=== PATIENT | female | born 2005 | race Caucasian/White ===

== ENCOUNTER 2025-03-31 13:11 | Outpatient (AMB) | payer OTHER, SELFPAY ==
--- NOTE | 2025-03-31 13:47 | A.OFFPC_ITS ---
Vital Signs 03/31/25 13:49 Height 5 ft 1 in Weight 138 lb BMI 26.1 BP 100/54 L Blood Pressure Location Rt brachial Pulse 69 Pulse Source Pulse Oximeter Temp 97.5 F Pulse Oximetry (%) 99 Intake Visit Reasons: [employer]PER / Headaches Intake Note: having some anxiety with living at school. Allergies No Known Allergies Allergy (Verified 03/31/25 14:11) Medication List - Last Reconciled 03/31/25 by Kristina Paez PA-C No Known Home Meds Dental Screening Dental Screen Date: 03/31/25 Did you have a dental visit in the last 12 months?: Yes Did you have a dental problem in the last 6 months where you did not have access to dental care?: Yes Was dental information given to patient?: Patient has dentist HPI HPI Comments 2 History of Present Illness Details History of Present Illness The patient is a 19 year old female presenting as a new patient for a physical exam and to obtain a letter regarding her anxiety. She has been experiencing increased anxiety while living at school and is seeking a medical release from her on-campus housing requirement. The patient's school, [employer], requires a formal document to appeal their denial of her request to move out. Her medical history is notable for asthma and eczema, and she has a long-standi ng history of migraine headaches. She does not take any regular medications for these conditions. Her only reported surgery was the removal of two wisdom teeth on the left side a few months ago. She denies any family history of cancer. Social History - Housing: The patient currently lives o campus at [employer] but wishes to move home due to anxiety, which she reports is exacerbated by the shared dormitory environment. 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 - Sexual History: The patient has been s exually active in the past but is not currently. [facility] Medical History (Updated 03/31/25 @ 15:51 by Kristina Paez PA-C) Preventative health care Anxiety Annual physical exam Migraine headache Cervical cancer screening Surgical History History of wisdom tooth extraction Family History Mother No problems noted. Social History Alcohol intake: current Alcohol intake frequency: does not drink Patient Tobacco Use Status: Never used Tobacco Questionnaire PHQ-9 Over the last 2 weeks, how often have you been bothered by any of the following problems? 1. Little interest or pleasure in doing things: not at all 2. Feeling down, depressed, or hopeless: not at all 3. Trouble falling or staying asleep, or sleeping too much: not at all 4. Feeling tired or having little energy: not at all 5. Poor appetite or overeating: not at all 6. Feeling bad about yourself - or that you are a failure or have let yourself or your family down: not at all 7. Trouble concentrating on things, such as reading the newspaper or watching television: not at all 8. Moving or speaking so slowly that other people could have noticed. Or the opposite - being so fidgety or restless that you have been moving around a lot more than usual: not at all 9. Thoughts that you would be better off or of hurting yourself in some way: not at all Total score: 0 Depression Screening Interpretation: Negative Depression Screening Done: Yes 05200 - PHQ-9 Billing: Yes Source: Developed by Drs. Get Pearson, Hue Jefferson, Flaco Hart and colleagues, with an educational brittany from [employer]. Thrive Questionnaire Date Thrive assessed: 03/31/25 I am a: Patient What is your living situation today?: I have a steady place to live Within the past 12 months, did the food you bought not last and you didn't have the money to get more?: Never true Within the past 12 months, did you worry whether your food would run out before you got money to buy more?: Never true Do you have trouble paying for medicines?: No Do you have trouble getting transportation to medical appointments?: No Do you have trouble paying your heating and electricity bill?: No Do you have trouble taking care of your child, family member or friend?: No Do you have trouble with day-to-day activities such as bathing, preparing meals, shopping, managing finances, etc.?: No Are you currently unemployed and looking for a job?: No Are you interested in more education?: No THRIVE Score: 0 AUDIT C Alcohol Use Questionnaire (AUDIT-C) 1. How often do you have a drink containing alcohol?: Never 3. How often do you have six or more drinks on one occasion?: Never Total Score: 0 Score Reviewed/Action Taken: No LUCIA-7 AMB Questionnaire LUCIA-7 Date LUCIA - 7 assessed: 03/31/25 Feeling nervous, anxious, or on edge: 2 = More than half the days Not being able to stop or control worryin = Not at all Worrying too much about different things: 0 = Not at all Trouble relaxin = Not at all Being so restless that it is hard to sit still: 0 = Not at all Becoming easily annoyed or irritable: 0 = Not at all Feeling afraid as if something awful might happen: 0 = Not at all Total LUCIA-7 score (0-4 normal; 5-9 mild; 10-14 moderate; 15-21 severe): 2 Source: Developed by Drs. Get Pearson, Hue Jefferson, Flaco Hart and colleagues, with an educational brittany from [employer]. LUCIA-7 Assessment Billing LUCIA-7 Assessment Tool: LUCIA-7 Assessment 88662 Review of Systems Narrative Review of Systems - HEENT: Reports a history of headaches. - Psychiatric: Reports feeling anxious living at school. Denies anhedonia, depressed mood, sleep disturbances, fatigue, appetite changes, feelings of worthlessness, or suicidal ideation. - Constitutional: Denies fatigue or unintentional weight loss. - Gastrointestinal: Denies black or bloody stools. Const All systems reviewed & are unremarkable except as noted in HPI and below Physical exam (Primary Care) Vital Signs: Last Vital Signs Temp 97.5 F 03/31/25 13:49 Pulse 69 03/31/25 13:49 BP 100/54 L 03/31/25 13:49 Pulse Ox 99 03/31/25 13:49 Care Plan Goal for BP management: <140/90 at Goal BMI result Body Mass Index 26.1 BMI Assessment/Plan discussion: High BMI High, discussed plan: lifestyle, weight reduction, dietary, physical activity, alcohol moderation and other Tobacco/Smoking Status: Tobacco use Status Patient Tobacco Use Status Never used Tobacco 03/31/25 13:59 PHQ-9: PHQ-9 Score PHQ-9: Total score 0 03/31/25 14:58 Depression Screening Interpretation: Negative Thrive Assessment: Date of Thrive Assessment Date Thrive assessed 03/31/25 03/31/25 14:00 Narrative Physical Exam Appearance: Alert. Oriented X3. No acute distress. Head: Normal external exam. Normocephalic. Atraumatic. Eyes: Pupils are equal, round, and reactive to light. Extraocular movements intact. Conjunctiva and sclera normal. Eyelids normal. Ears: External auditory canal normal. Tympanic membranes normal. Throat: Pharynx normal. Uvula midline. Moist mucous membranes. Neck: Normal inspection. Neck supple. Full range of motion. No adenopathy. Thyroid Normal. No meningeal signs. No neck mass noted. Cardiovascular: Normal heart rate and rhythm. Heart sound normal. No murmurs noted. Pulses normal throughout. Respiratory: No respiratory distress. Painless inspiration. Breath sounds normal. No wheezes/rales/rhonchi noted. Chest nontender. No accessory muscle usage noted or decreased air movement noted. Abdomen: Soft and nontender. Bowel sounds normal in all 4 quadrants. No distention noted. No organomegaly noted. No visible injury noted. Back: No costovertebral angle tenderness. Full range of motion noted. Skin: Skin warm and dry. Normal skin color. Normal skin turgor. No rashes/lesions/lacerations noted. Extremities: No lower extremity edema. Extremities exhibit normal range of motion. Extremities nontender. Neuro: Oriented X 3. No motor deficit. No sensory deficit. Reflexes normal. Office Procedures Flu Questionnaire Does the patient have a severe egg allergy?: No Does the patient have severe life threatening allergies?: No Does the patient have a fever or illness today?: No Has the patient ever had Guillain-Langley Syndrome?: No Has the patient ever had any past reaction to a flu shot?: No Immunizations Fluarix [id number] (PF) 45 mcg (15 mcg x 3)/0.5 mL IM syringe Performing Provider: Kristina Paez PA-C [facility] Administered by: Carley Fields on 03/31/25 14:01 Dose Route Admin Location Dispensed Lot Number Expiration Date [facility] Copyright Expert 0.5 mL IM Left Deltoid 0.5 mL [id number] 10/14/25 75230-686-20 [employer] VIS Given Date VIS Provided VIS Publication Date 03/31/25 Single Vaccine 24 Eligibility Eligibility Date Funding Source Not [facility] Eligible 03/31/25 Private Coding Level of Care Code New Pt Prev Care 18-39yr(74283 Add On Preventative Visit Only Diagnoses Annual physical exam Z00.00 Anxiety F41.9 Migraine headache G43.909 Preventative health care Z00.00 Cervical cancer screening Z12.4 Additional Codes LUCIA-7 Assessment Billing - LUCIA-7 Assessment Tool: LUCIA-7 Assessment 70165 ([id number]) PHQ-9 - 48110 - PHQ-9 Billing: Yes ([id number]) Time Spent (min) 60 Assessment & Plan Assessment & Plan (1) Annual physical exam: Code(s): Z00.00 - Encounter for general adult medical examination without abnormal findings Category: Medical (2) Anxiety: Code(s): F41.9 - Anxiety disorder, unspecified Category: Medical Plan: The patient reports anxiety exacerbated by living in a shared dormitory environment, negatively impacting her well-being and academic performance. A letter was provided to recommend that she be permitted to move out of the campus dormitory as a medical accommodation. The patient declined a referral to a therapist or psychiatrist, stating she feels she would be better if she could live at home. (3) Migraine headache: Code(s): G43.909 - Migraine, unspecified, not intractable, without status migrainosus Category: Medical Plan: The patient has a history of migraine headaches, which she manages with Motrin. She states this is sufficient and does not feel the need for a referral to a neurologist. (4) Preventative health care: Code(s): Z00.00 - Encounter for general adult medical examination without abnormal findings Category: Medical Plan: The patient's visit was established as her annual physical. Baseline blood work was ordered, including a CBC, CMP, magnesium, lipid panel, and HbA1c, with instructions to fast for 10-12 hours prior. Due to a history of sexual activity, a referral will be placed for a Pap smear for cervical cancer screening. She was instructed on how to perform a breast self-exam. A follow-up is scheduled for a yearly appointment, though she should return sooner if her blood work is abnormal. (5) Cervical cancer screening: Code(s): Z12.4 - Encounter for screening for malignant neoplasm of cervix Category: Medical Plan: l refer to director of planning for cervical cancer screening. Plan Plan Patient was informed and verbally consented to the use of an ambient scribe for clinic note documentation during this visit. 1. Anxiety The patient reports anxiety exacerbated by living in a shared dormitory environment, negatively impacting her well-being and academic performance. A letter was provided to recommend that she be permitted to move out of the campus dormitory as a medical accommodation. The patient declined a referral to a therapist or psychiatrist, stating she feels she would be better if she could live at home. 2. Migraine The patient has a history of migraine headaches, which she manages with Motrin. She states this is sufficient and does not feel the need for a referral to a neurologist. 3. Preventative Care The patient's visit was established as her annual physical. Baseline blood work was ordered, including a CBC, CMP, magnesium, lipid panel, and HbA1c, with instructions to fast for 10-12 hours prior. Due to a history of sexual activity, a referral will be placed for a Pap smear for cervical cancer screening. She was instructed on how to perform a breast self-exam. A follow-up is scheduled for a yearly appointment, though she should return sooner if her blood work is abnormal. Discussion Notes I discussed with the patient that this visit would serve as her annual physical. We discussed her anxiety, which is exacerbated by her living situation at college, and I agreed to provide a letter to her school recommending she be allowed to live off-campus as a medical accommodation. I educated her on the need for cervical cancer screening due to her history of sexual activity and will provide a referral. I also instructed her on performing monthly breast self-exams and advised that routine mammograms typically begin at age 40 and colonoscopies at 45, given her lack of family history. I ordered routine fasting lab work, including a CBC, CMP, lipids, and A1c, and instructed her to have it completed within the next eight weeks. I recommended she sign up for the patient portal for easier communication. We will follow up in one year for her next physical unless any issues arise sooner. Orders: Orders C Reactive Protein Today Z00.00 - Encounter for general adult medical examination without abnormal findings Comprehensive [place]. Panel Fast Today Z00.00 - Encounter for general adult medical examination without abnormal findings Complete Blood Count Auto Diff Today Z00.00 - Encounter for general adult medical examination without abnormal findings Lipid Panel Today Z00.00 - Encounter for general adult medical examination without abnormal findings TSH reflex Free T4 Today Z00.00 - Encounter for general adult medical examination without abnormal findings UA CC w/rflx Micro + Cult Today Z00.00 - Encounter for general adult medical examination without abnormal findings Hemoglobin A1c Today Z00.00 - Encounter for general adult medical examination without abnormal findings Erythrocyte Sedimentation Rate Today Z00.00 - Encounter for general adult medical examination without abnormal findings Magnesium Today Z00.00 - Encounter for general adult medical examination without abnormal findings Vitamin B12 and Folate Today Z00.00 - Encounter for general adult medical examination without abnormal findings Vitamin D 25-OH Total Today Z00.00 - Encounter for general adult medical examination without abnormal findings Influenza [id number] Immunization Today Z23 - Encounter for immunization Referrals [employer] Referral Z12.4 - Encounter for screening for malignant neoplasm of cervix Patient Instructions: Patient Instructions - Go to the lab to get your blood work done within the next 8 weeks. Do not eat or drink anything except water or black coffee for 10-12 hours before the blood draw. - We will refer you to a women's health specialist for a Pap smear (cervical cancer screening). - Perform a self-exam of your breasts monthly. While in the shower, place an arm behind your head and use your other hand to feel your breast in a circular motion, pushing on the nipple to check for any discharge. - For your headaches, you can continue to take Motrin as needed. - Sign up for the patient portal to make it easier to communicate with our office. - Schedule a follow-up appointment in one year for your annual physical exam. - Please call us if you have any questions or if your blood work comes back abnormal.
[2025-03-31 13:49] VITALS: BP 100/54; PULSE 69; TEMP 36.4; O2SAT 99; BMI 26.1
--- OUTSIDE RECORDS SUMMARY | 2025-03-31 19:11 | XMS_ITS | Encounter Summary ---
Author Organization [facility] Address [address] [place] [address] Phone Care Team Providers Care Business Office Representative Name Role Phone Maikel Koenig MD Primary Care Provider [phone] Encounter Details Date Type Department Care Team ([facility] Contact Info) Description 09/28/2010 Conversion Encounter [facility] [place] [address] [place] [id number] Social History Tobacco Use Types Packs/Day Years Used Date Smoking Tobacco: Never Assessed Comments Unknown Sex and Gender Information Value Date Recorded Sex Assigned at Female 02/11/2020 9:57 AM EDT Legal Sex Female 6:42 PM EDT Gender Identity Female 02/11/2020 9:57 AM EDT Sexual Orientation Straight 02/11/2020 9: 57 AM EDT documented as of this encounter Plan of Treatment Not on file documented as of this encounter Visit Diagnoses Not on filedocumented in this encounter Care Teams Business Office Representative Relationship Specialty Start Date End Date Maikel Koenig MD [address] [place] [id number] PCP - General 08/23/17 documented as of this encounter
--- OUTSIDE RECORDS SUMMARY | 2025-03-31 19:11 | XMS_ITS | Clinical Summary ---
Author Organization [facility] Address [address] [place] [address] Phone Care Team Providers Care Transportation Engineering Technician Name Role Phone Maikel Koenig MD Primary Care Provider [phone] Allergies No known active allergies Medications No known medications Active Problems Problem Noted Date Diagnosed Date Chest wall pain 06/05/2024 Assessment & Plan (06/05/2024 3:23 PM EST): Well appearing w non-focal exam Patient Instructions Chest wall pain, uncertain trigger Extra strength Tylenol 500 mg per tablet--2 tabs, 3x daily x 3 days then stop. Could use reg tylenol (325 mg per tablet) if that's all that is available. If worsening, needs a recheck and probably a CXR. Counseling for transition fr pediatric to adult care provider 11/16/2023 Resolved Problems Problem Noted Date Diagnosed Date Resolved Date Acne vulgaris 03/03/2021 11/16/2023 Overview (03/03/2021): June 2020: tretinoin 0.025% cream and clindamycin 1% Nov 2020: to continue Feb 2021: worsening -- increase to tretinoin 0.1%, clindamycin 1% BID and BP 10% face wash BID -- recheck 3 months. Assessment & Plan (07/22/2021 10:32 AM EDT): Continue Pro-Activ as directed x 6 weeks and if not improving come back to office and can consider oral medications. Coppola splints 02/11/2020 11/16/2023 Overview (02/11/2020): Suspected bilateral Assessment & Plan (07/22/2021 10:36 AM EDT): Handout, discussed. Ice, Aleve, inserts in shoes. Take 1 Aleve (220 mg Naproxen) with food about 1 hour prior to playing soccer. Assessment & Plan (02/11/2020 11:01 AM EDT): I suspect Yamilet has coppola splints. I recommend: Rest for a few weeks to allow inflammation to calm down May use Ibuprofen , Aleve or Tylenol as needed for pain relief . May also ice after activity for 15 minutes I recommend trial of shoe inserts to provide arch support Stretching exercises Call if pain worsens, is located on front of coppola, night wakening, painful at rest or develops fevers Also call if not improving in 2-3 weeks. I would refer to orthopedics or physical therapy Cellulitis of toe of left foot 12/25/2018 02/14/2019 Assessment & Plan (12/25/2018 8:19 PM EDT): Cellulitis- Blister incised w small needle and drained w scant pus- cultured. Dressing w topical abx applied. Took extra dose of Keflex in office ( so 2 grams total today). Will continue 500mg TID for 5 more days. Soaks and topical abx TID F/u if looking sicker or more red, pain etc. 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 Has tried multiple stimulants previously with same issues. Yamilet feels she is doing fine w/o medication. Has found other ways to cope. No services in school I discussed that if inattention returns as a concern, we could consider trying a stimulant like Vyvanse from the amphetamine family of stimulants Assessment & Plan (02/14/2019 3:33 PM EDT): ADD--start Focalin XR medication as discussed Recheck in 2 months, CALL Dr. Koenig in 10 days with an update. School services such as 504 plan as needed Discussed medication effects and side effects Call for refill when down to last 5-7 tablets/capsules Healthy diet, regular exercise and at least 8 hours sleep nightly encouraged Assessment & Plan (08/13/2018 2:29 PM EDT): Change to Methylphenidate ER 18 mg daily (aka Concerta) Recheck in 5 weeks or so. Call if concerns. School services such as 504 plan as needed Discussed medication effects and side effects Call for refill when down to last 5-7 tablets/capsules Healthy diet, regular exercise and at least 8 hours sleep nightly encouraged Immunizations Immunization Administration Dates Next Due DTaP / Hep B / IPV 03/30/2006,02/08/2006, 006 DTaP 5 09/28/2010, 7,01/05/2007,03/30,02/08/2006,2005 HPV Vaccine 9 Valent 10/22/2018,02/05/2018 Hep A, ped/adol 04/06/2007, 7,09/29/2006,09/29 Hep B, ped/adol 03/30/2006, 6,2005,09/11,2005 Hib (HbOC) 01/05/2007 Hib (PRP-T) 01/05/2007, 6,03/30/2006,02/08,02/08/2006,2005,2005 IPV 12/29/2009, 6,02/08/2006,12/08 Influenza, injectable, quadr ivalent, preservative free 03/14/2022,07/22/2021,02/11/2020,02/14,02/05/2018,02/11/2016,03/17/2015 Influenza, injectable, trivalent 04/06/2007,01/16 Influenza, injectable, triva lent, preservative free 03/16/2010,01/08/2009,01/08/2008,04/06,02/12/2007 Influenza, intranasal, trivalent 02/22/2012 MMR 09/18/2010,09/29/2006 MMRV 09/29/2006 Meningococcal B Trumenba 11/15/2023,11/01/2022 Meningococcal Conj (Menactra) MCV4P 12/15/2016 Meningococcal Conj (Menveo) MCV4O 03/14/2022 Pneumococcal Conjugate 01/05/2007,2006,03/30/2006,03/30,02/08/2006,02/08/2006,2005 ,2005 Pneumococcal Conjugate 13-Valent 12/29/2009 Tdap 12/15/2016 Unknown Vaccine 09/29/2006 Varicella 12/29/2009,09/29/2006 Family History Relation Name Status Comments Brother Alive Brother: Alive and well Father Alive Father: Alive a nd well Mother Alive Mother: Alive a nd well Social History Tobacco Use Types Packs/Day Years Used Date Smoking Tobacco: Never Smokeless Tobacco: Never Hunger/Food Answer Date Recorded In the last 12 months, did y ou or your family ever eat less than you felt you should because there wasn't enough money for food? No 11/15/2023 Stable Housing Answer Date Recorded Are you worried that in the next 2 months you may not have stable housing? No 11/15/2023 Transportation Concerns Answer Date Rec orded In the last 12 months, have you or your family ever had to go without healthcare because you didn't have a way to get there? No 11/15/2023 Hazards in Home Answer Date Recorded Think about the place you li ve. Do you have problems with any of the following? Pests (mice or roaches), mold, no/not working smoke detectors, water leaks, no window guards. No 2023 Financing Utilities Answer Date Recorde d In the last 12 months, has t he electric, gas, oil, or water company threatened to shut off your services in your home? No 11/15/2023 Safety at Home Answer Date Recorded Are you or your family worried about feeling saf e in your home? No 11/15/2023 Outside Support Answer Date Recorded Do you feel that you need mo re support from other people or programs to help you care for yourself or your family? No 11/15/2023 Understanding Health Concerns Answer Da te Recorded Do you need help understandi ng your or your child's healthcare needs (diagnosis, medications, plan, etc.)? No 11/15/2023 Financing Health Concerns Answer Date R ecorded In the last 12 months, was t here a time when your child needed to see a doctor or get medications or supplies but could not because of cost? No 11/15/2023 Missing School or Work Answer Date Payam rded Did you or your child miss s chool or work because of a health problem that could have been avoided? No 11/15/2023 Child Education Answer Date Recorded Do you have concerns about y our/your child's learning or behavior in school, preschool, or daycare? No 11/15/2023 Comments No Sex and Gender Information Value Date Recorded Sex Assigned at Female 02/11/2020 9:57 AM EDT Legal Sex Female 6:42 PM EDT Gender Identity Female 02/11/2020 9:57 AM EDT Sexual Orientation Straight 02/11/2020 9: 57 AM EDT Last Filed Vital Signs Vital Sign Reading Time Taken Comments Blood Pressure 116/64 06/05/2024 2:06 PM EST Pulse 80 06/05/2024 2:06 PM EST Temperature 37.4 C (99.3 F) 06/05/2024 2:06 PM EST Respiratory Rate 20 06/05/2024 2:06 PM EST Oxygen Saturation 98% 06/05/2024 2:06 PM EST Inhaled Oxygen Concentration - - Weight 59.1 kg (130 lb 6 oz) 06/05/2024 2:06 PM EST Height 153.3 cm (5' 0.35 ) 11/15/2023 10:48 AM E DT Body Mass Index 25.16 11/15/2023 10:48 AM EDT Body Mass Index Percentile 81.41% 06/05/2024 2:0 6 PM EST Growth Chart: CDC (Girls, 2- 20 Years) Plan of Treatment Health Maintenance Due Date Last Done Comments Chlamydia and Gonorrhea Screening 04/17/2024 024, 11/01/2022 Influenza Vaccines (#1) 2024 03/14/20 22, 07/22/2021, 02/11/2020, Additional history exists COVID-19 Vaccine (1 - 2024-2 6 season) 2024 DTaP,Tdap,and Td Vaccines (7 - Td or Tdap) 12/15/2026 12/15/2016, 09/28/2010, 01/05/2007, Additional history exists Hepatitis B Vaccines Completed 03/30/2006, 03/30/2006, 02/08/2006, Additional history exists HIB Vaccines Completed 01/05/2007, 12/17, 03/30/2006, Additional history exists Hepatitis A Vaccines Completed 04/06/2007, 04/06/2007, 09/29/2006, Additional history exists IPV Vaccines Completed 12/29/2009, 03/17, 03/30/2006, Additional history exists Pneumococcal Vaccine Completed 12/29/2009, 01/05/2007, 01/05/2007, Additional history exists Varicella Vaccines Completed 12/29/2009, 0 09/29/2006, 09/29/2006 MMR Vaccines Completed 09/18/2010, 09/15, 09/29/2006 HPV Vaccines Completed 10/22/2018, 02/05/2018 Meningococcal Vaccine Completed 03/14/2022, 017 Men B Vaccine Completed 11/15/2023, 11/01/2022 Procedures * Due to [place] [email or web address] law, this organization might not be sharing sensitive test results. Procedure Name Priority Date/Time Associated Diagnosis Comments CHLAMYDIA AND GONORRHEA, AMPLIFIED Routine 11/15/2023 11:35 AM EDT Encounter for screening examination for sexually transmitted disease from Last 3 Months or Most Recently Relevant to Health Maintenance Results * Due to [place] [email or web address] law, this organization might not be sharing sensitive test results. * Chlamydia and Gonorrhoea, Amplified (Urine) (11/15/2023 11:35 AM EDT) C trach CHALINO Negative Negative [facility] N gonorrhoeae CHALINO Negative Negative [facility] Urine (Urine, Random (not clean void)) 11/15/2023 11:35 AM EDT 11/15/2023 Comment:Urine, Keeshao Narrative [facility] - 11/16/2023 5:06 PM EDT Performed at: - [facility] [address], [address], [place], [place] [id number] Supervisor Product Inspection: Masood Sewell MD, Phone: [phone] us Maikel Koenig MD LAB MICROBIOLOGY - GENERAL ORDER KALLI Final Result Performing Organization Address City/State/[facility] Co de Phone Number [facility] [address] [place] [address] from Last 3 Months or Most Recently Relevant to Health Maintenance Insurance [facility] A[facility] Care Teams Transportation Engineering Technician Relationship Specialty Start Date End Date Maikel Koenig MD [address] [place] [address] PCP - General 08/23/17
--- OUTSIDE RECORDS SUMMARY | 2025-03-31 19:11 | XMS_ITS | Encounter Summary ---
Author Organization [facility] Address [address] [place] [address] Phone Care Team Providers Care Harbor Pilot Name Role Phone Maikel Koenig MD Primary Care Provider [phone] Encounter Details Date Type Department Care Team ([facility] Contact Info) Description 12/01/2016 Conversion Encounter [facility] - [address] [address] Social History Tobacco Use Types Packs/Day Years [...] on filedocumented in this encounter Care Teams Harbor Pilot Relationship Specialty Start Date End Date Maikel Koenig MD [address] [place] [id number] PCP - General 08/23/17 documented as of this encounter
== END 2025-03-31 14:36 | disposition home or self-care (01) ==
LOC: HO.HMCSH 13:11
PROVIDERS: PCP Physician Assistant Medical; Visit Provider Physician Assistant Medical
DX: Z00.00 Encounter for general adult medical examination without abnormal findings (principal); F41.9 Anxiety disorder, unspecified; G43.909 Migraine, unspecified, not intractable, without status migrainosus; Z23 Encounter for immunization

== ENCOUNTER → 2025-03-31 13:11 | Outpatient (BNVA) | payer OTHER, SELFPAY | PROVIDERS: PCP Physician Assistant Medical; Visit Provider Physician Assistant Medical | DX: Z00.00 Encounter for general adult medical examination without abnormal findings (principal); Z23 Encounter for immunization; Z12.4 Encounter for screening for malignant neoplasm of cervix; F41.9 Anxiety disorder, unspecified; G43.909 Migraine, unspecified, not intractable, without status migrainosus | CPT/HCPCS: 90471; 90656; 96127 ==

== ENCOUNTER 2025-04-15 10:28 | Outpatient (AMB) | payer OTHER, SELFPAY ==
--- NOTE | 2025-04-15 10:28 | A.OFFPC_ITS ---
Vital Signs 04/15/25 10:29 Height 5 ft 1 in Weight 141 lb BMI 26.6 BP 109/52 L Blood Pressure Location Rt brachial Position Sitting Respiration 14 Pulse 88 Pulse Source Pulse Oximeter Temp 97.8 F Temp Source Temporal Artery Scan Pulse Oximetry (%) 96 Oxygen Delivery Method Room Air Intake Visit Reasons: Headache Matting Press Tender Required: No Accompanied by: Self / Same As Patient Allergies No Known Allergies Allergy (Verified 04/18/25 10:12) Medication List - Last Reconciled 04/18/25 by Michael Sawyer MD No Known Home Meds Tobacco use date assessed: 04/15/25 Dental Screening Dental Screen Date: 04/15/25 Did you have a dental visit in the last 12 months?: Yes Did you have a dental problem in the last 6 months where you did not have access to dental care?: No Was dental information given to patient?: Patient has dentist HPI HPI Comments History of Present Illness Details History of Present Illness - The patient is a 19 year old female wh o presents for evaluation after a head injury. - She reports that she was snowboarding on Monday when she fell and hit her head. - She was wearing a helmet, which did no t crack, although her goggles flew off. - Immediately following the fall, she ex perienced a mild headache and neck pain, but it did not prevent her from being able to continue snowboarding, though it was her last run. - The headache resolved the next day but returned yesterday, prompting the visit. - She denies fevers, chills, and double vision. - She reports she has been eating, drink ing, and sleeping well, with possible slight nausea only when driving. - Her past medical history is unremarkab le. - She is not on any medications and ana es substance use. Social History - Education: The patient attends [employer] and studies movement science. - Substance use: The patient denies any substance use. - Activities: The patient enjoys snowboa rding. Results [facility] Medical History Preventative health care Anxiety Annual physical exam Migraine headache Cervical cancer screening Surgical History History of wisdom tooth extraction Family History Mother No problems noted. Social History Housing: Apartment Alcohol intake: current Alcohol intake frequency: does not drink Patient Tobacco Use Status: Never used Tobacco service: No Current occupational status: employed and student Cognitive needs: No Hearing needs: No Vision needs: No Questionnaire PHQ-9 Over the last 2 weeks, how often have you been bothered by any of the following problems? 1. Little interest or pleasure in doing things: not at all 2. Feeling down, depressed, or hopeless: not at all 3. Trouble falling or staying asleep, or sleeping too much: not at all 4. Feeling tired or having little energy: not at all 5. Poor appetite or overeating: not at all 6. Feeling bad about yourself - or that you are a failure or have let yourself or your family down: not at all 7. Trouble concentrating on things, such as reading the newspaper or watching television: not at all 8. Moving or speaking so slowly that other people could have noticed. Or the opposite - being so fidgety or restless that you have been moving around a lot more than usual: not at all 9. Thoughts that you would be better off or of hurting yourself in some way: not at all Total score: 0 Depression Screening Interpretation: Negative Depression Screening Done: Yes 64811 - PHQ-9 Billing: Yes Source: Developed by Drs. Get Pearson, Hue Jefferson, Flaco Hart and colleagues, with an educational brittany from [employer]. Thrive Questionnaire Date Thrive assessed: 03/31/25 I am a: Patient What is your living situation today?: I have a steady place to live Within the past 12 months, did the food you bought not last and you didn't have the money to get more?: Never true Within the past 12 months, did you worry whether your food would run out before you got money to buy more?: Never true Do you have trouble paying for medicines?: No Do you have trouble getting transportation to medical appointments?: No Do you have trouble paying your heating and electricity bill?: No Do you have trouble taking care of your child, family member or friend?: No Do you have trouble with day-to-day activities such as bathing, preparing meals, shopping, managing finances, etc.?: No Are you currently unemployed and looking for a job?: No Are you interested in more education?: No THRIVE Score: 0 AUDIT C Alcohol Use Questionnaire (AUDIT-C) 1. How often do you have a drink containing alcohol?: Never 3. How often do you have six or more drinks on one occasion?: Never Total Score: 0 Score Reviewed/Action Taken: No LUCIA-7 AMB Questionnaire LUCIA-7 Date LUCIA - 7 assessed: 03/31/25 Feeling nervous, anxious, or on edge: 2 = More than half the days Not being able to stop or control worryin = Not at all Worrying too much about different things: 0 = Not at all Trouble relaxin = Not at all Being so restless that it is hard to sit still: 0 = Not at all Becoming easily annoyed or irritable: 0 = Not at all Feeling afraid as if something awful might happen: 0 = Not at all Total LUCIA-7 score (0-4 normal; 5-9 mild; 10-14 moderate; 15-21 severe): 2 Source: Developed by Drs. Get Pearson, Hue Jefferson, Flaco Hart and colleagues, with an educational brittany from [employer]. LUCIA-7 Assessment Billing LUCIA-7 Assessment Tool: LUCIA-7 Assessment 44461 Review of Systems Narrative Review of Systems - Constitutional: Denies fever and chills. - Neurological: Reports headache. Denies double vision. - Musculoskeletal: Reports neck pain. - Gastrointestinal: Reports possible minor nausea while driving. Denies changes in appetite or thirst. Physical exam (Primary Care) Vital Signs: Last Vital Signs Temp 97.8 F 04/15/25 10:29 Pulse 88 04/15/25 10:29 Resp 14 04/15/25 10:29 BP 109/52 L 04/15/25 10:29 Pulse Ox 96 04/15/25 10:29 Oxygen Delivery Method Room Air 04/15/25 10:29 BMI result Body Mass Index 26.6 Tobacco/Smoking Status: Tobacco use Status Tobacco use date assessed 04/15/25 04/15/25 10:31 Patient Tobacco Use Status Never used Tobacco 04/15/25 10:31 PHQ-9: PHQ-9 Score PHQ-9: Total score 0 04/15/25 11:00 Depression Screening Interpretation: Negative Thrive Assessment: Date of Thrive Assessment Date Thrive assessed 03/31/25 04/15/25 10:31 Narrative Physical Exam General: Appearance normal, both eyes and all related structures Nutritional Appearance: Well nourished Orientation/consciousness: Patient oriented x3 Limitations: No limitations Head: Normal to inspection, no bumps noted Neck: Normal visual inspection, patient reported neck pain Chest: Normal palpation of entire chest wall Respiratory: Normal respiratory effort Neurology: Patient oriented x3, no double vision, no nausea, no fever or chills Const Other: Fundud exam: Normal Pupils, equal reacting to light appropriately and EOMI intact. Coding Level of Care Code Est Pt Level 4 (89218) Add On Problem Visit Only Diagnoses Headache R51.9 Additional Codes LUCIA-7 Assessment Billing - LUCIA-7 Assessment Tool: LUCIA-7 Assessment 07288 ([id number]) PHQ-9 - 17385 - PHQ-9 Billing: Yes ([id number]) Assessment & Plan Assessment & Plan (1) Headache: Code(s): R51.9 - Headache, unspecified Plan Plan - The patient was reassured that the physical examination was normal and did not show signs of a significant head injury. - She was advised she can take Tylenol for headaches. - She was instructed to return to the clinic or go to the emergency department if her headaches become more pronounced or if she develops new symptoms such as visual changes. - The patient was praised for wearing a helmet. Discussion Notes I informed the patient that her examination was reassuring and showed no evidence of a focal neurological deficit or other signs of a serious head injury. I advised her that she may experience headaches, and that she can use Tylenol for symptomatic relief. I provided strict return precautions, instructing her to come back or seek emergency care if her headaches worsen or if she develops new symptoms, such as an illusion or other visual changes. I commended her for wearing a helmet and encouraged her to continue practicing safety measures. Patient Instructions - Your exam today was normal and does not show signs of a serious head injury. - You can take Tylenol if you have a headache. - Please return or go to the emergency room if your headache gets much worse or if you develop any new symptoms, like changes in your vision. - It was very good that you were wearing a helmet, please continue to be safe.
[2025-04-15 10:29] VITALS: BP 109/52; PULSE 88; RESP 14; TEMP 36.6; O2SAT 96; BMI 26.6
--- OUTSIDE RECORDS SUMMARY | 2025-04-15 13:59 | XMS_ITS | Clinical Summary ---
Author Organization [facility] Address [address] [place] [address] Phone Care Team Providers Care Accident Examiner Name Role Phone Maikel Koenig MD Primary Care Provider [phone] Allergies No known active allergies Medications No [...] tried multiple stimulants previously with same issues. Yaimlet feels she is doing fine w/o medication. [...] Chlamydia and Gonorrhea Screening 04/17/2024 024, 11/01/2022 COVID-19 Vaccine (1 - 2024-2 6 season) [...] 017 Men B Vaccine Completed 11/15/2023, 11/01/2022 Influenza Vaccines Completed 03/31/2025, 1 05/14/2021, 07/22/2021, Additional history exists Procedures * Due to [place] [employer] law, this organization might not be sharing sensitive test results. Procedure Name Priority Date/Time Associated Diagnosis Comments CHLAMYDIA AND GONORRHEA, AMPLIFIED Routine 11/15/2023 11:35 AM EDT Encounter for screening examination for sexually transmitted disease from Last 3 Months or Most Recently Relevant to Health Maintenance Results * Due to [place] [employer] law, this organization might not be sharing sensitive test results. * Chlamydia and Gonorrhoea, Amplified (Urine) (11/15/2023 11:35 AM EDT) C trach CHALINO Negative Negative [facility] N gonorrhoeae CHALINO Negative Negative [facility] Urine (Urine, Random (not clean void)) 11/15/2023 11:35 AM EDT 11/15/2023 Comment:Urine, Rando Narrative [facility] - 11/16/2023 5:06 PM EDT Performed at: - [facility] [address], [address], [place], [place] [id number] Chemical Engraver: Masood Sewell MD, Phone: [phone] us Maikel Koenig MD LAB MICROBIOLOGY - GENERAL ORDER KALLI Final Result Performing Organization Address City/State/[facility] Co de Phone Number [facility] [address] [place] [address] from Last 3 Months or Most Recently Relevant to Health Maintenance Insurance [facility] A[facility] Care Teams Accident Examiner Relationship Specialty Start Date End Date Maikel Koenig MD [address] [place] [address] PCP - General 08/23/17
--- OUTSIDE RECORDS SUMMARY | 2025-04-15 13:59 | XMS_ITS | Encounter Summary ---
Author Organization [facility] Address [address] [place] [address] Phone Care Team Providers Care Patient Services Manager Name Role Phone Maikel Koenig MD Primary Care Provider [phone] Encounter Details Date Type Department Care Team ([facility] Contact Info) Description 12/01/2016 Conversion Encounter [facility] - [address] [address] Social History Tobacco Use Types Packs/Day Years [...] on filedocumented in this encounter Care Teams Patient Services Manager Relationship Specialty Start Date End Date Maikel Koenig MD [address] [place] [address] PCP - General 08/23/17 documented as of this encounter
--- OUTSIDE RECORDS SUMMARY | 2025-04-15 13:59 | XMS_ITS | Encounter Summary ---
Author Organization [facility] Address [address] [place] [address] Phone Care Team Providers Care Internal Controls Consultant Name Role Phone Maikel Koenig MD Primary Care Provider [phone] Encounter Details Date Type Department Care Team ([facility] Contact Info) Description 09/28/2010 Conversion Encounter [facility] [address] [place] [address] Social History Tobacco Use Types Packs/Day Years [...] on filedocumented in this encounter Care Teams Internal Controls Consultant Relationship Specialty Start Date End Date Maikel Koenig MD [address] [place] [address] PCP - General 08/23/17 documented as of this encounter
== END 2025-04-15 10:56 | disposition home or self-care (01) ==
LOC: HO.HMCSH 10:28
PROVIDERS: PCP Physician Assistant Medical; Visit Provider Internal Medicine
DX: R51.9 Headache, unspecified (principal)

== ENCOUNTER → 2025-04-15 10:28 | Outpatient (BNVA) | payer OTHER, SELFPAY | PROVIDERS: PCP Physician Assistant Medical; Visit Provider Internal Medicine | DX: R51.9 Headache, unspecified (principal); Z13.31 Encounter for screening for depression; Z13.39 Encounter for screening examination for other mental health and behavioral disorders | CPT/HCPCS: 96127 ==